=== PATIENT | female | born 2005 | race Caucasian/White ===

== ENCOUNTER 2025-08-14 09:47 | Emergency (ER) | payer SELFPAY ==
[2025-08-14] MEDS: Diphtheria,Pertussis(Acell),Tetanus Vaccine 0.5 ML Syringe IM ONE (10:19)
[2025-08-14] MEDS: Rabies Vaccine (Avian) 2.5 Unit Inj Kit IM ONE (10:47)
[2025-08-14] MEDS: Rabies Immune Globulin/PF (HyperRAB) 300 UNIT/ML 5 ML SDV IM ONE (10:47)
== END 2025-08-14 11:39 | disposition home or self-care (01) ==
LOC: MW.ED 09:47
DX: S61.250A Open bite of right index finger without damage to nail, initial encounter (principal); F17.200 Nicotine dependence, unspecified, uncomplicated; Z23 Encounter for immunization; Z88.5 Allergy status to narcotic agent; W53.81XA Bitten by other rodent, initial encounter
CPT/HCPCS: 90375; 90471; 90472; 90675; 90715; 96372; 99283; 99283-25